=== PATIENT | female | born 1955 | race Caucasian/White ===

== ENCOUNTER 2016-05-17 16:29 | Inpatient (IN) | payer MEDICARE ==
[~2016-05-17] VITALS: Ht 170.2 cm; Wt 104.9 kg
--- NOTE | ~2016-05-17 | CON ---
[place], [place] REPORT OF CONSULTATION NAME: CARIDADPENNY Rodriguez UNIT #: [id number] ROOM: 420 DOCTOR: EMERY HERRERA MD BIRTHDATE: [birth year] DOS: 05/19/2016 PSYCHIATRIC CONSULTATION CHIEF COMPLAINT: "I don't know why they have you here to see me." HISTORY OF PRESENT ILLNESS: This is a 60-year-old white female who has a lengthy history of multiple sclerosis, who presented to the hospital with multiple falls. The patient resides with her boyfriend and states for the last several weeks, her legs have been feeling very weak and jelly like and she has fallen multiple times bruising up her legs. Upon admission to the hospital, she denied depression, anxiety, any type of andria or psychotic symptoms. Most of her symptoms were physical of nature. She does report currently being on Wellbutrin 150 mg a day, which she states has been working for her and she also takes trazodone 100 mg at bedtime as a sleep aid. During my interview, she denied having any type of symptoms, but did state that at times she is slightly forgetful. PAST MEDICAL HISTORY: Remarkable for multiple sclerosis, obesity, frequent falls, hypokalemia and severe protein calorie malnutrition. MENTAL STATUS: She is alert and oriented to person, place, but not necessarily to time. She tended to be rather vague and evasive on these types of questions. She denies depressive symptomatology, stating that sleep and appetite are fine and her energy level in general is good. She denies hypomania or andria. She denies any type of psychotic symptoms. There are no auditory or visual hallucinations. No delusions, no paranoia. Memory for short term events has some gaps, otherwise she is fully intact. DIAGNOSIS: Major depression, recurrent, adequately treated with the current medication regimen. PLAN: I would not change her antidepressant regimen at this point. I would want to further evaluate her cognitive status to determine if she would benefit from some type of cholinesterase inhibitor to help with any type of cognitive decline secondary to the MS. I think it is too early at this point for me to make that decision, at this point, I would have her follow up if you feel it warranted in my office. [place], [place] REPORT OF CONSULTATION NAME: PENNY MCLEAN UNIT #: [id number] ROOM: 420 DOCTOR: EMERY HERRERA MD BIRTHDATE: [birth year] EMERY HERRERA MD CM:CONSTR:REPORT OF CONSULTATION 1013 05/19/16 2043 interface
[2016-05-17 16:29] VITALS: BP 174/93
[~2016-05-17 16:29] MED LIST: AMBIEN5 MG PO; ATIVAN2 MG PO; CIPRO500 MG PO; NORCO 325 MG-101 TAB PO; OXYCODONE30 MG PO; REBIF SC; TRAZODO50 MG PO; TRAZODONE50 MG PO; ZANTAC150 MG PO; [UNRECOGNIZED DRUG - REMARK]
[2016-05-17] MEDS ORDERED: BUPROPION HCL150 M1 PO (16:44)
[2016-05-17] MEDS ORDERED: APAP/OXYCODONE1 TA2 PO (16:44)
[2016-05-17] MEDS ORDERED: POTASSIUM CHLO10 ME5 PO (16:45)
[2016-05-17] MEDS ORDERED: TIZANIDINE HCL2 MG PO (16:45)
[2016-05-17] MEDS ORDERED: REBIF22 MCG/0.5 SC (16:46)
[2016-05-17] MEDS ORDERED: TRAZODONE100 MG PO (16:47)
[2016-05-17 17:00] VITALS: BP 170/90
[2016-05-17 17:32] LABS: BASO % 0.3 % (0.0-1.0); EOS # 0.1 10*3/uL (0.0-0.4); EOS % 0.7 % (1.0-4.0); HEMATOCRIT 37.9 % (37.0-47.0); HEMOGLOBIN 12.8 g/dl (12.0-16.0); LYMPH # 1.1 10*3/uL (1.3-4.4); LYMPH % 10.7 % (27.0-41.0); MEAN CELL VOLUME 83.7 fl (81.0-99.0); MEAN CORPUSCULAR HGB 28.3 pg (27.0-31.0); MEAN CORPUSCULAR HGB CONC 33.8 g/dl (33.0-37.0); MEAN PLATELET VOLUME 9.1 fl (9.6-12.3); MONO # 0.5 10*3/uL (0.1-1.0); MONO % 5.1 % (3.0-9.0); NEUT # 8.1 10*3/uL (2.3-7.9); PLATELET COUNT AUTOMATED 349 10*3/uL (130-400); RED BLOOD COUNT 4.53 10*6/uL (4.10-5.10); RED CELL DISTRI WIDTH 13.2 % (0-14.5); WHITE BLOOD COUNT 9.8 10*3/uL (4.8-10.8)
[2016-05-17 17:45] LABS: BILIRUBIN NEGATIVE (NEGATIVE); BLOOD NEGATIVE (NEGATIVE); CLARITY CLEAR (CLEAR); COLOR YELLOW (YELLOW); GLUCOSE NEGATIVE (NEGATIVE); KETONE NEGATIVE (NEGATIVE); LEUKO ESTERASE NEGATIVE (NEGATIVE); NITRITE NEGATIVE (NEGATIVE); PH 5.5 (5.0-9.0); PROTEIN NEGATIVE (NEGATIVE); UROBILINOGEN 0.2 E.U./dl (0.2-1.0)
[2016-05-17 17:50] LABS: ALBUMIN 2.6 gm/dl (3.1-4.5); ALKALINE PHOSPHATASE 91 U/L (45-117); BILIRUBIN, TOTAL 0.4 mg/dl (0.2-1.0); BUN 12 mg/dl (7-24); CARBON DIOXIDE 27 mmol/L (21-32); CHLORIDE 106 mmol/L (98-107); EST GLOM FILT AFRICAN AMERICAN > 60 ml/min; GLUCOSE 88 mg/dL (65-99); POTASSIUM 3.3 mmol/L (3.5-5.1); SGOT/AST 13 IU/L (3-35); SGPT/ALT 13 U/L (12-78); SODIUM 144 mmol/L (136-145); TOTAL PROTEIN 6.3 gm/dL (6.4-8.2); TROPONIN I 0.027 ng/ml (<0.045)
[2016-05-17 17:57] LABS: EPITHELIAL CELLS 0-2; URINE REFLEX COMMENT NO (NO); WBC 0-2 wbc/hpf (0-5); YEAST 2+
[2016-05-17 18:00] VITALS: BP 160/80
[2016-05-17 19:30] VITALS: BP 164/98
[2016-05-17 20:00] VITALS: BP 164/98
[2016-05-17] MEDS ORDERED: ADVIL200 MG PO (20:03)
[2016-05-17 23:06] VITALS: BP 170/84
[2016-05-18] VITALS: BP 143/88
[2016-05-18 00:55] LABS: CPK 37 U/L (26-192); TROPONIN I 0.037 ng/ml (<0.045)
[2016-05-18 00:56] LABS: CKMB < 0.5 ng/ml (0.5-3.6)
[2016-05-18 06:28] LABS: HEMATOCRIT 39.2 % (37.0-47.0); HEMOGLOBIN 13.2 g/dl (12.0-16.0); MEAN CELL VOLUME 82.5 fl (81.0-99.0); MEAN CORPUSCULAR HGB 27.8 pg (27.0-31.0); MEAN CORPUSCULAR HGB CONC 33.7 g/dl (33.0-37.0); PLATELET COUNT AUTOMATED 366 10*3/uL (130-400); RED BLOOD COUNT 4.75 10*6/uL (4.10-5.10); RED CELL DISTRI WIDTH 13.2 % (0-14.5); WHITE BLOOD COUNT 9.6 10*3/uL (4.8-10.8)
[2016-05-18 06:42] LABS: CPK 37 U/L (26-192); TROPONIN I 0.023 ng/ml (<0.045)
[2016-05-18 06:43] LABS: CKMB < 0.5 ng/ml (0.5-3.6)
[2016-05-18 06:47] LABS: HEMOGLOBIN A1c 5.4 % (4.8-5.6)
[2016-05-18 06:59] LABS: LYMPHOCYTE # 0.5 10*3/uL (1.3-4.4); NEUTROPHIL # 9.1 10*3/uL (2.3-7.9); NEUTROPHILS 95 % (47-73); PLATELET SUFFICIENCY NORMAL (NORMAL); TOTAL CELLS COUNTED 100 #CELLS
[2016-05-18 07:04] LABS: CHLORIDE 104 mmol/L (98-107); POTASSIUM 3.1 mmol/L (3.5-5.1); SODIUM 140 mmol/L (136-145)
[2016-05-18 07:25] LABS: BUN 9 mg/dl (7-24); CARBON DIOXIDE 25 mmol/L (21-32); CHOLESTEROL 139 mg/dL (<200); EST GLOM FILT AFRICAN AMERICAN > 60 ml/min; FREE T4 1.24 ng/dl (0.76-1.46); GLUCOSE 155 mg/dL (65-99); HDL CHOLESTEROL 57 mg/dl (40-60); LDL CHOLESTEROL 67 mg/dL (9-159); MAGNESIUM 1.9 mg/dL (1.5-2.1); PHOSPHOROUS 2.6 mg/dL (2.5-4.9); THYROID STIM HORMONE (HS) 0.259 uIU/ml (0.358-4.75); TRIGLYCERIDES 77 mg/dl (<150); VLDL CHOLESTEROL 15 mg/dL (6-40)
[2016-05-18 08:00] VITALS: BP 170/86
[2016-05-18 08:38] LABS: FOLIC ACID 3.27 ng/mL (>5.38); VITAMIN D, 25-HYDROXY 20.5 ng/mL (30-100)
[2016-05-18 10:50] VITALS: BP 150/96
[2016-05-18 12:14] LABS: CKMB < 0.5 ng/ml (0.5-3.6); CPK 41 U/L (26-192); TROPONIN I 0.021 ng/ml (<0.045)
[2016-05-18 16:00] VITALS: BP 140/60
[2016-05-18 20:00] VITALS: BP 141/66
[2016-05-19] VITALS: BP 134/56
[2016-05-19 07:22] LABS: CHLORIDE 105 mmol/L (98-107); POTASSIUM 3.8 mmol/L (3.5-5.1); SODIUM 141 mmol/L (136-145)
[2016-05-19 07:33] LABS: CARBON DIOXIDE 27 mmol/L (21-32); EST GLOM FILT AFRICAN AMERICAN > 60 ml/min; GLUCOSE 145 mg/dL (65-99)
[2016-05-19 07:34] LABS: BUN 20 mg/dl (7-24)
[2016-05-19 08:00] VITALS: BP 136/66
[2016-05-19 12:00] VITALS: BP 151/65
[2016-05-19] MEDS ORDERED: AMLODIPINE BESYL5 MG PO (13:52)
[2016-05-19] MEDS ORDERED: VANCOMYCIN HCL125 MG PO (13:52)
[2016-05-19 16:00] VITALS: BP 90/50
[2016-05-19 20:00] VITALS: BP 123/64
[2016-05-20] VITALS: BP 132/70
[2016-05-20 08:00] VITALS: BP 135/65
[2016-05-20 12:00] VITALS: BP 159/80
[2016-05-20 16:00] VITALS: BP 137/69
[2016-05-20 20:00] VITALS: BP 102/68
[2016-05-21] VITALS: BP 125/55
[2016-05-21 04:00] VITALS: BP 156/76
[2016-05-21 06:19] LABS: EOS % 0.2 % (1.0-4.0); HEMATOCRIT 39.2 % (37.0-47.0); HEMOGLOBIN 12.6 g/dl (12.0-16.0); LYMPH # 1.3 10*3/uL (1.3-4.4); LYMPH % 20.6 % (27.0-41.0); MEAN CELL VOLUME 85.4 fl (81.0-99.0); MEAN CORPUSCULAR HGB 27.5 pg (27.0-31.0); MEAN CORPUSCULAR HGB CONC 32.1 g/dl (33.0-37.0); MEAN PLATELET VOLUME 9.1 fl (9.6-12.3); MONO # 0.4 10*3/uL (0.1-1.0); MONO % 6.2 % (3.0-9.0); NEUT # 4.7 10*3/uL (2.3-7.9); NEUT % 72.7 % (47.0-73.0); PLATELET COUNT AUTOMATED 374 10*3/uL (130-400); RED BLOOD COUNT 4.59 10*6/uL (4.10-5.10); RED CELL DISTRI WIDTH 13.2 % (0-14.5); WHITE BLOOD COUNT 6.5 10*3/uL (4.8-10.8)
[2016-05-21 06:45] LABS: ALBUMIN 2.4 gm/dl (3.1-4.5); ALKALINE PHOSPHATASE 73 U/L (45-117); BILIRUBIN, TOTAL 0.3 mg/dl (0.2-1.0); BUN 21 mg/dl (7-24); CARBON DIOXIDE 30 mmol/L (21-32); CHLORIDE 106 mmol/L (98-107); EST GLOM FILT AFRICAN AMERICAN > 60 ml/min; GLUCOSE 84 mg/dL (65-99); POTASSIUM 3.3 mmol/L (3.5-5.1); SGOT/AST 44 IU/L (3-35); SGPT/ALT 71 U/L (12-78); SODIUM 143 mmol/L (136-145); TOTAL PROTEIN 5.9 gm/dL (6.4-8.2)
[2016-05-21 08:00] VITALS: BP 148/75
[2016-05-21 12:00] VITALS: BP 156/77
[2016-05-21 14:31] LABS: BILIRUBIN NEGATIVE (NEGATIVE); BLOOD NEGATIVE (NEGATIVE); CLARITY SL CLOUDY (CLEAR); COLOR YELLOW (YELLOW); GLUCOSE NEGATIVE (NEGATIVE); KETONE TRACE (NEGATIVE); LEUKO ESTERASE NEGATIVE (NEGATIVE); NITRITE NEGATIVE (NEGATIVE); PH 7.5 (5.0-9.0); PROTEIN NEGATIVE (NEGATIVE); SPECIFIC GRAVITY 1.015 (1.005-1.030); UROBILINOGEN 0.2 E.U./dl (0.2-1.0)
[2016-05-21 14:49] LABS: BACTERIA TRACE; EPITHELIAL CELLS 20-25; RBC 0-2 rbc/hpf (0-2)
[2016-05-21 14:50] LABS: URINE REFLEX COMMENT NO (NO); WBC 0-2 wbc/hpf (0-5)
[2016-05-21 16:00] VITALS: BP 129/70
[2016-05-21 20:00] VITALS: BP 152/64
[2016-05-22] VITALS: BP 152/75
[2016-05-22 04:00] VITALS: BP 150/72
[2016-05-22 09:00] VITALS: BP 148/78
[2016-05-22 12:00] VITALS: BP 136/72
[2016-05-22 16:00] VITALS: BP 108/54
[2016-05-22 20:00] VITALS: BP 132/72
[2016-05-23] VITALS: BP 138/59
[2016-05-23 08:00] VITALS: BP 109/59
[2016-05-23 12:00] VITALS: BP 135/57
[2016-05-23] MEDS ORDERED: VANCOMYCIN HCL125 MG PO (15:18)
[2016-05-23 16:00] VITALS: BP 115/57; BP 135/60
== END 2016-05-23 18:12 | disposition other institution (70) | DRG 58 ==
LOC: ED 16:29 → 4E 17:57 → EDHOLD 17:57 → 4E 18:17
PROVIDERS: Family Medicine Adult Medicine; Internal Medicine; Student in an Organized Health Care Education/Training Program
DX: G35 Multiple sclerosis (principal); E43 Unspecified severe protein-calorie malnutrition; A04.7 Enterocolitis due to Clostridium difficile; F33.9 Major depressive disorder, recurrent, unspecified; E87.6 Hypokalemia; E66.9 Obesity, unspecified; Z87.440 Personal history of urinary (tract) infections; Z81.2 Family history of tobacco abuse and dependence; Z79.1 Long term (current) use of non-steroidal anti-inflammatories (NSAID); Z79.899 Other long term (current) drug therapy; Z68.39 Body mass index [BMI] 39.0-39.9, adult

== ENCOUNTER → 2017-08-14 | Outpatient (CLI) | payer MEDICARE ==
[~2017-08-14] MED LIST changes: +ADVIL200 MG PO; +AMLODIPINE BESYL5 MG PO; +APAP/OXYCODONE1 TA2 PO; +BUPROPION HCL150 M1 PO; +POTASSIUM CHLO10 ME5 PO; +REBIF22 MCG/0.5 SC; +TIZANIDINE HCL2 MG PO; +TRAZODONE100 MG PO; +VANCOMYCIN HCL125 MG PO
== END | disposition home or self-care (01) ==
LOC: RAD 13:30
DX: Z13.820 Encounter for screening for osteoporosis (principal); Z90.710 Acquired absence of both cervix and uterus; Z78.0 Asymptomatic menopausal state

== ENCOUNTER → 2018-06-12 | Outpatient (CLI) | payer MEDICARE ==
[2018-06-12 14:56] LABS: BASO % 0.7 % (0.0-1.0); EOS # 0.3 10*3/uL (0.0-0.4); EOS % 4.5 % (1.0-4.0); HEMATOCRIT 42.9 % (37.0-47.0); HEMOGLOBIN 13.6 g/dl (12.0-16.0); LYMPH # 1.4 10*3/uL (1.3-4.4); LYMPH % 24.9 % (27.0-41.0); MEAN CELL VOLUME 88.1 fl (81.0-99.0); MEAN CORPUSCULAR HGB 27.9 pg (27.0-31.0); MEAN CORPUSCULAR HGB CONC 31.7 g/dl (33.0-37.0); MEAN PLATELET VOLUME 9.5 fl (9.6-12.3); MONO # 0.4 10*3/uL (0.1-1.0); MONO % 6.4 % (3.0-9.0); NEUT # 3.6 10*3/uL (2.3-7.9); NEUT % 63.5 % (47.0-73.0); PLATELET COUNT AUTOMATED 273 10*3/uL (130-400); RED BLOOD COUNT 4.87 10*6/uL (4.10-5.10); RED CELL DISTRI WIDTH 14.6 % (0-14.5); WHITE BLOOD COUNT 5.6 10*3/uL (4.8-10.8)
[2018-06-12 15:24] LABS: ALBUMIN 3.3 gm/dl (3.1-4.5); CHLORIDE 107 mmol/L (98-107); POTASSIUM 3.9 mmol/L (3.5-5.1); SODIUM 141 mmol/L (136-145)
[2018-06-12 15:36] LABS: ALKALINE PHOSPHATASE 126 U/L (45-117); BUN 18 mg/dl (7-24); CHOLESTEROL 143 mg/dL (<200); CREATININE 0.83 mg/dL (0.55-1.02); FREE T4 0.92 ng/dl (0.76-1.46); HDL CHOLESTEROL 68 mg/dl (40-60); LDL CHOLESTEROL 62 mg/dL (9-159); SGOT/AST 12 IU/L (3-35); SGPT/ALT 23 U/L (12-78); TOTAL PROTEIN 6.8 gm/dL (6.4-8.2); TRIGLYCERIDES 64 mg/dl (<150); VLDL CHOLESTEROL 13 mg/dL (6-40)
== END | disposition home or self-care (01) ==
LOC: LAB 14:33
PROVIDERS: Internal Medicine
DX: F32.9 Major depressive disorder, single episode, unspecified (principal); E11.9 Type 2 diabetes mellitus without complications